=== PATIENT | male | born 1940 | race Caucasian/White ===

== ENCOUNTER 2016-12-01 12:16 | Inpatient (IN) | payer OTHER, BC ==
[~2016-12-01] VITALS: Ht 172.7 cm; Wt 76.6 kg
[2016-12-01 13:08] LABS: HEMATOCRIT 42.8 % (38.0-50.0); MCH 28.7 PG (29.0-34.0); MCHC 32.7 G/DL (30.0-36.0); MCV 87.9 FL (86-99); MEAN PLAT.VOLUME 9.2 uM^3 (9.0-12.4); PLATELET COUNT 226 K/uL (156-360); RBC DIS.WIDTH-CV 13.7 % (11.8-14.6); RBC DIS.WIDTH-SD 44.4 % (39-53); RED BLOOD COUNT 4.87 M/uL (4.00-5.50); WHITE BLOOD COUNT 7.2 K/uL (4.1-10.2)
[2016-12-01 13:46] LABS: CHLORIDE 103 mEq/L (99-109); POTASSIUM 4.6 mEq/L (3.7-5.4); SODIUM 138 mEq/L (136-147)
[2016-12-01 13:48] LABS: GLUCOSE 151 mg/dL (70-99)
[2016-12-01 13:49] LABS: ANION GAP 9 MEQ/L (2-14)
[2016-12-01 13:52] LABS: UREA NITROGEN (BUN) 22 mg/dL (9-23)
[2016-12-01 13:55] LABS: GFR ESTIMATE (CALCULATED) 52 mL/min/
[2016-12-01 13:59] LABS: TROP-I INTERPRETATION NEGATIVE; TROPONIN-I 0.15 ng/mL (0.0-0.30)
[2016-12-01] MEDS ORDERED: GLIPIZIDE-METF1 EACH PO (15:54)
[2016-12-01] MEDS ORDERED: ONGLYZA5 MG PO (15:54)
[2016-12-01] MEDS ORDERED: PROTONIX40 MG PO (15:55)
[2016-12-01] MEDS ORDERED: IBUPROFEN800 MG PO (15:55)
[2016-12-01 16:30] LABS: BILIRUBIN NEGATIVE; BLOOD NEGATIVE; GLUCOSE (STRIP) NEGATIVE; KETONES 5; LEUKOCYTES NEGATIVE; NITRITE NEGATIVE; PROTEIN (STRIP) NEGATIVE; UROBILINOGEN 0.2 MG/DL (0.2-1.0)
[2016-12-01 16:33] LABS: ADD MIUA? NO; COLOR YELLOW ((YELLOW)); UCUL ADDED? NO
[2016-12-01 16:47] LABS: HDL CHOLESTEROL 35 MG/DL (Desirable>=40); NON-HDL CHOLESTEROL 183 mg/dL (Desirable<160); TOTAL CHOLESTEROL 218 mg/dL (Desirable<200); TRIGLYCERIDES 493 MG/DL (Normal: <150)
[2016-12-01 18:31] LABS: POINT-OF-CARE METER ID UU14162513
[2016-12-01 19:39] VITALS: BP 112/71
[2016-12-01 20:31] LABS: TROP-I INTERPRETATION NEGATIVE; TROPONIN-I 0.26 ng/mL (0.0-0.30)
[2016-12-01 23:48] VITALS: BP 132/89
[2016-12-02 03:33] VITALS: BP 119/62
[2016-12-02 03:38] LABS: CHLORIDE 103 mEq/L (99-109); SODIUM 138 mEq/L (136-147)
[2016-12-02 03:40] LABS: GLUCOSE 145 mg/dL (70-99)
[2016-12-02 03:41] LABS: ANION GAP 10 MEQ/L (2-14)
[2016-12-02 03:44] LABS: GFR ESTIMATE (CALCULATED) 45 mL/min/
[2016-12-02 03:45] LABS: UREA NITROGEN (BUN) 27 mg/dL (9-23)
[2016-12-02 03:52] LABS: TROP-I INTERPRETATION NEGATIVE; TROPONIN-I 0.22 ng/mL (0.0-0.30)
[2016-12-02 07:45] VITALS: BP 159/76
[2016-12-02 08:06] LABS: POINT-OF-CARE METER ID UU13113831
[2016-12-02] MEDS ORDERED: GLIPIZIDE-METF1 EAC1 PO (08:09)
[2016-12-02 12:24] LABS: POINT-OF-CARE METER ID UU13113700
[2016-12-02 12:50] VITALS: BP 140/67
[2016-12-02 16:14] VITALS: BP 166/80
[2016-12-02 16:39] VITALS: BP 152/73
[2016-12-02 16:43] LABS: POINT-OF-CARE METER ID UU13113700
[2016-12-02 20:00] VITALS: BP 171/82
[2016-12-03 00:30] VITALS: BP 146/74
[2016-12-03 03:55] VITALS: BP 166/76
[2016-12-03 08:14] VITALS: BP 185/88
[2016-12-03 09:08] LABS: CHLORIDE 102 mEq/L (99-109); POTASSIUM 4.7 mEq/L (3.7-5.4); SODIUM 136 mEq/L (136-147)
[2016-12-03 09:10] LABS: GLUCOSE 245 mg/dL (70-99)
[2016-12-03 09:11] LABS: ANION GAP 9 MEQ/L (2-14)
[2016-12-03 09:13] LABS: GFR ESTIMATE (CALCULATED) 52 mL/min/
[2016-12-03 09:14] LABS: UREA NITROGEN (BUN) 26 mg/dL (9-23)
[2016-12-03 12:14] LABS: INTER. NORMALIZED RATIO 1.1; PROTHROMBIN TIME 10.7 (9.2-11.2); PTT 33.3 (25-32)
[2016-12-03 12:42] VITALS: BP 154/73
[2016-12-03 12:43] LABS: POINT-OF-CARE METER ID UU14174225
[2016-12-03 15:58] VITALS: BP 125/65
[2016-12-03 17:15] LABS: POINT-OF-CARE METER ID UU14174225
[2016-12-03 20:00] VITALS: BP 119/70
[2016-12-03 21:49] LABS: POINT-OF-CARE METER ID UU14174225
[2016-12-04] VITALS (7 sets, daily range): BP systolic 130–146; BP diastolic 67–76
[2016-12-04 07:16] LABS: Estimated Average Glucose 229 mg/dL (70-123); HEMOGLOBIN A1c (GLYCOHEMOGLOB) 9.6 % HGB (Below 5.7)
[2016-12-04 07:54] LABS: ANION GAP 8 MEQ/L (2-14); CHLORIDE 101 MEQ/L (99-109); GFR ESTIMATE (CALCULATED) 57 mL/min/; GLUCOSE 162 mg/dL (70-99); POTASSIUM 4.2 MEQ/L (3.7-5.4); SAMPLE HEMOLYSIS CHECK 0; SAMPLE ICTERIC CHECK 0; SAMPLE LIPEMIA CHECK 0; SODIUM 137 MEQ/L (136-147); UREA NITROGEN (BUN) 27 mg/dL (9-23)
[2016-12-04 07:56] LABS: MCH 28.4 PG (29.0-34.0); MCHC 32.1 G/DL (30.0-36.0); MCV 88.4 FL (86-99); MEAN PLAT.VOLUME 10.2 uM^3 (9.0-12.4); PLATELET COUNT 224 K/uL (156-360); RBC DIS.WIDTH-CV 13.7 % (11.8-14.6); RBC DIS.WIDTH-SD 44.7 % (39-53)
[2016-12-04 14:49] LABS: POINT-OF-CARE METER ID UU13113696
[2016-12-04 18:28] LABS: POINT-OF-CARE METER ID UU13113819; POINT-OF-CARE USER ID 515036437
[2016-12-04 21:19] LABS: POINT-OF-CARE METER ID UU14174216
[2016-12-05 04:05] VITALS: BP 131/78
[2016-12-05 07:30] VITALS: BP 155/73
[2016-12-05 07:37] LABS: POINT-OF-CARE USER ID ENVKC36
[2016-12-05] MEDS ORDERED: CLOPIDOGREL75 MG PO (11:29)
[2016-12-05] MEDS ORDERED: ASPIR-LOW81 MG PO (11:29)
[2016-12-05] MEDS ORDERED: NITROSTAT0.4 MG SL (11:29)
[2016-12-05] MEDS ORDERED: LOPRESSOR25 MG PO (11:29)
[2016-12-05] MEDS ORDERED: IMDUR30 MG PO (11:29)
[2016-12-05] MEDS ORDERED: ATORVASTATIN CA40 MG PO (11:29)
[2016-12-05 11:41] LABS: POINT-OF-CARE USER ID ENVKC36
[2016-12-05 12:10] VITALS: BP 150/73
== END 2016-12-05 13:59 | disposition home or self-care (01) | DRG 287 ==
LOC: EME 12:16 → EDOF 14:38 → 5WEST 16:50 → 5SOUTH 12-02 11:38 → 4EAST 12-02 11:38 → 5WEST 12-03 11:57 → 5SOUTH 12-03 12:19 → 4EAST 12-04 20:15
PROVIDERS: Emergency Medicine; Hospitalist; Internal Medicine; Nurse Practitioner Adult Health
PROC: B215YZZ Fluoroscopy of Left Heart using Other Contrast (ICD-10-PCS; principal; 2016-12-04)
PROC: B2111ZZ Fluoroscopy of Multiple Coronary Arteries using Low Osmolar Contrast (ICD-10-PCS; principal; 2016-12-04)
PROC: 4A023N7 Measurement of Cardiac Sampling and Pressure, Left Heart, Percutaneous Approach (ICD-10-PCS; principal; 2016-12-04)
DX: I25.110 Atherosclerotic heart disease of native coronary artery with unstable angina pectoris (principal); T82.857A Stenosis of other cardiac prosthetic devices, implants and grafts, initial encounter; I24.9 Acute ischemic heart disease, unspecified; N17.9 Acute kidney failure, unspecified; G45.9 Transient cerebral ischemic attack, unspecified; I12.9 Hypertensive chronic kidney disease with stage 1 through stage 4 chronic kidney disease, or unspecified chronic kidney disease; N18.3 Chronic kidney disease, stage 3 (moderate); E11.65 Type 2 diabetes mellitus with hyperglycemia; E78.2 Mixed hyperlipidemia; J44.9 Chronic obstructive pulmonary disease, unspecified; K21.9 Gastro-esophageal reflux disease without esophagitis; E11.22 Type 2 diabetes mellitus with diabetic chronic kidney disease; F41.9 Anxiety disorder, unspecified; E11.319 Type 2 diabetes mellitus with unspecified diabetic retinopathy without macular edema; I51.7 Cardiomegaly; I45.10 Unspecified right bundle-branch block; Z91.128 Patient's intentional underdosing of medication regimen for other reason; Z60.2 Problems related to living alone; H91.90 Unspecified hearing loss, unspecified ear; Z98.61 Coronary angioplasty status; Z79.84 Long term (current) use of oral hypoglycemic drugs; Z99.81 Dependence on supplemental oxygen; Z87.891 Personal history of nicotine dependence; Z82.49 Family history of ischemic heart disease and other diseases of the circulatory system
CPT/HCPCS: 70496; 70498; 70551; 71010; 80048; 80061; 81003; 82948; 83036; 84484; 85027; 85610; 85730; 93005; 94010; 94760; 94799; 99281; 99285; C1769; C1887; G0378; J0360; J1644; J1815; J2250; J3010; J7030; J7040; J7120